=== PATIENT | female | born 1955 | race Caucasian/White ===

== ENCOUNTER → 2019-02-28 19:46 | Outpatient (CLI) | payer MEDICARE ==
[~2019-02-28 19:46] MED LIST: ASPIRIN EC81 M1 PO; BUSPAR 15 MG TA15 MG PO; CELEBREX200 MG PO; COREG 3.1253.125 MG PO; DIOVAN80 MG PO; GLUCOPHAGE500 MG PO; PROZAC40 MG PO; REGLAN10 MG
[2019-03-28 00:08] VITALS: BMI 41.6
== END | disposition home or self-care (01) ==
LOC: D.LABREF 19:46
PROVIDERS: ATTEND Orthopaedic Surgery
DX: M17.12 Unilateral primary osteoarthritis, left knee (principal)

== ENCOUNTER 2019-03-01 16:17 | Inpatient (IN) | payer MEDICARE, OTHER ==
[~2019-03-01] VITALS: Ht 154.9 cm; Wt 100.0 kg
[2019-03-14] MEDS ORDERED: GLUCOPHAGE500 MG PO (13:38)
[2019-03-14] MEDS ORDERED: PROZAC40 MG PO (13:38)
[2019-03-14] MEDS ORDERED: CELEBREX200 MG PO (13:38)
[2019-03-14] MEDS ORDERED: DIOVAN80 MG PO (13:39)
[2019-03-14] MEDS ORDERED: ASPIRIN EC81 M1 PO (13:39)
[2019-03-14] MEDS ORDERED: COREG 3.1253.125 MG PO (13:39)
[2019-03-14] MEDS ORDERED: BUSPAR 15 MG TA15 MG PO (13:40)
[2019-03-22] MEDS ORDERED: REGLAN10 MG (11:01)
[2019-03-22 11:46] LABS: BASOPHILS 0.3 % (0-2); EOSINOPHILS 2.6 % (0-7); HEMATOCRIT 44.2 % (36.0-48.0); HEMOGLOBIN 14.3 g/dL (12-16); IMMATURE GRANULOCYTES 0.3 % (0-5); LYMPHOCYTES 21.5 % (15-50); MCH 29.2 pg (26.0-34.0); MCHC 32.4 g/dL (31.0-37.0); MCV 90.4 fL (80.0-100.0); MEAN PLATELET VOLUME 9.2 fL (7.4-10.4); MONOCYTES 7.9 % (2-11); NEUTROPHILS 67.4 % (40-80); PLATELET COUNT 276 10x3/uL (130-400); RBC 4.89 10x6/uL (4.00-5.40); RDW 14.4 % (11.5-14.5); WBC 11.8 10x3/uL (4.8-10.8)
[2019-03-22 11:47] LABS: APTT 24.9 SECONDS (22.8-39.4); INR 1.03 (0.85-1.17)
[2019-03-22 11:53] LABS: CALCIUM 9.6 mg/dL (8.5-10.1); CARBON DIOXIDE 28.4 mmol/L (21.0-32.0); CREATININE - SERUM 0.9 mg/dL (0.6-1.3); POTASSIUM - SERUM 3.4 mmol/L (3.5-5.1)
[2019-03-22 12:14] LABS: APPEARANCE CLEAR (CLEAR); BILIRUBIN NEGATIVE (NEGATIVE); COLOR YELLOW (YELLOW); GLUCOSE NEGATIVE (NEGATIVE); KETONE NEGATIVE (NEGATIVE); NITRITE NEGATIVE (NEGATIVE); PROTEIN NEGATIVE (NEGATIVE); SPECIFIC GRAVITY 1.025 (1.005-1.020); UROBILINOGEN NORMAL (NORMAL)
[2019-03-27 09:36] VITALS: BP 136/92; BMI 41.6
--- NOTE | 2019-03-27 10:55 | NUR ---
DR. TIDWELL NOTIFIED AND REVIEWED PT'S BEHAVIOR AND ASSESSMENT RESULTS. PT IS A LOW RISK PER DR. TIDWELL. DR. TIDWELL STATED TO GIVE RESOURCES TO PT AT TIME OF DISCHARGE. NO FURTHER ORDERS AT THIS TIME. RESOURCES REVIEWED WITH PT AND SHE VERBALIZED UNDERSTANDING.
--- NOTE | 2019-03-27 19:21 | NUR ---
PLASMA BLADE SET TO 6/8 BOVIE PAD RIGHT THIGH [id number] EXP 11/09/20 PREPPED LEFT LEG FROM TOURNIQUET TO TOES CIRCUMFERENTIALLY WITH ALCOHOL/HIBICLENS. DRIED WITH TOWEL AND PREPPED WITH CHLORAPREP. TRAFFIC MONITORED IN AND OUT OF ROOM AND KEPT TO A MINIMUM LAMINAR FLOW NOT IN USE
--- NOTE | 2019-03-27 20:25 | NUR ---
REC'D FROM PACU PER BED TO ROOM 2213 A 64 Y/O W/FE PER SERVICES DR. GAMBINO POST OP LEFT TOTAL KNEE WITH SOUTH REMOVAL. FRANCESCA WRAP DRESSING C/D/I. IV RT ARM OF 1/2NS AT 75CC'S/HR. INFUSING. DAUGHTER AT BEDSIDE.
--- NOTE | 2019-03-27 22:00 | NUR ---
PLACED ON BEDPAN VOIDS.
[2019-03-28] VITALS: BP 118/70
[2019-03-28 00:08] VITALS: BP 112/69; Ht 154.9 cm; Wt 100.0 kg
--- NOTE | 2019-03-28 02:00 | NUR ---
VOIDS ON BEDPAN
[2019-03-28 04:36] LABS: HEMATOCRIT 35.9 % (36.0-48.0); HEMOGLOBIN 11.1 g/dL (12-16); MCHC 30.9 g/dL (31.0-37.0); MCV 90.7 fL (80.0-100.0); MEAN PLATELET VOLUME 9.3 fL (7.4-10.4); RBC 3.96 10x6/uL (4.00-5.40); RDW 14.5 % (11.5-14.5); WBC 13.9 10x3/uL (4.8-10.8)
--- NOTE | 2019-03-28 06:00 | NUR ---
PLACED IN CPM MACHINE.
[2019-03-28 09:16] VITALS: BP 112/57
[2019-03-28 12:50] VITALS: BP 110/52
--- NOTE | 2019-03-28 13:24 | NUR ---
RESTING IN BED. DENIES NEEDS. WILL CONTINUE TO MONITOR.
--- NOTE | 2019-03-28 15:30 | MORECARE ---
CASE MANAGEMENT DISCHARGE SUMMARY PATIENT: EBEN RIZVI UNIT: [id number] ADM DATE: 03/27/19 AGE: 64 : 53 SEX: F ROOM/BED: D.2213 AUTHOR: GRIFFIN ANDRADE PHYSICIAN: REFERRING PHYSICIAN: JHONNY GAMBINO MD DATE OF SERVICE: 03/28/19 Discharge Plan Patient Name: EBEN RIZVI [facility] [facility] 1955 Planned Disposition: Home or Self Care Anticipated Discharge Date: Discharge Date: Expected LOS: Initial Reviewer: [email or web address] Initial Review Date: 03/27/2019 Generated: 03/28/19 4:30 pm DCPIA - Discharge Planning Initial Assessment Updated by [id number]: Gabbie Snyder on 03/28/19 3:30 pm * Is the patient Alert and Oriented? Yes * How many steps to enter\exit or inside your home? * PCP ANGELICA * Pharmacy [facility] * Preadmission Environment Home with Family * ADLs Independent * Equipment Cane * Other Equipment WILL DELIVER WALKER BSC CPM * List name and contact numbers for known caregivers / representatives who currently or will assist patient after discharge: ARGENTINA THAYER (DAUGHTER) [phone] * Verbal permission to speak to the caregivers and representatives has been obtained from the patient. N/A * Community resources currently utilized None * Additional services required to return to the preadmission environment? Yes * Can the patient safely return to the preadmission environment? Yes * Has this patient been hospitalized within the prior 30 days at any hospital? No Patient Name: EBEN RIZVI Page [id number] at 1530 All edits/amendments must be made on the electronic document DICTATION DATE: 03/28/19 153 SYSTEMS INTEGRATION ADVISOR: NATE 03/28/19 153 RPT#: [id number] DC DATE: STATUS: ADM IN [facility] [address] [place] [address] END OF REPORT
--- NOTE | 2019-03-28 15:54 | MORECARE ---
CASE MANAGEMENT DISCHARGE SUMMARY PATIENT: EBEN RIZVI UNIT: [id number] ADM DATE: 03/27/19 AGE: 64 : 53 SEX: F ROOM/BED: D.2213 AUTHOR: GRIFFIN ANDRADE PHYSICIAN: REFERRING PHYSICIAN: JHONNY GAMBINO MD DATE OF SERVICE: 03/28/19 Discharge Plan Patient Name: EBEN RIZVI [facility] [facility] 1955 Planned Disposition: Home or Self Care Anticipated Discharge Date: Discharge Date: Expected LOS: Initial Reviewer: [email or web address] Initial Review Date: 03/27/2019 Generated: 03/28/19 4:53 pm DCPIA - Discharge Planning Initial Assessment Updated by [id number]: Gabbie Snyder on 03/28/19 3:51 pm * Is the patient Alert and Oriented? Yes * How many steps to enter\exit or inside your home? * PCP ANGELICA * Pharmacy [facility] * Preadmission Environment Home with Family * ADLs Independent * Equipment Cane * Other Equipment WILL DELIVER WALKER BSC CPM * List name and contact numbers for known caregivers / representatives who currently or will assist patient after discharge: ARGENTINA THAYER (DAUGHTER) [phone] * Verbal permission to speak to the caregivers and representatives has been obtained from the patient. N/A * Community resources currently utilized None * Additional services required to return to the preadmission environment? Yes * Can the patient safely return to the preadmission environment? Yes * Has this patient been hospitalized within the prior 30 days at any hospital? No Last DP export: 03/28/19 2:30 Patient Name: EBEN RIZVI Page [id number] at 1554 All edits/amendments must be made on the electronic document DICTATION DATE: 03/28/191552 HOSPICE BEREAVEMENT COORDINATOR: NATE 03/28/191552 RPT#: [id number] DC DATE: STATUS: ADM IN [facility] [address] [place] [address] END OF REPORT
[2019-03-28 17:11] VITALS: BP 104/56
--- NOTE | 2019-03-28 17:46 | NUR ---
BP 118/60 PRIOR TO PRN PAIN MEDICATION.
--- NOTE | 2019-03-28 18:33 | NUR ---
RESTING IN BED. DENIES NEEDS. IV TO RIGHT AC PATENT WITHOUT REDNESS. BED LOW. FALL PRECAUTIONS IN PLACE. CALL NERI AND PERSONAL ITEM SIN REACH.
--- NOTE | 2019-03-28 18:38 | NUR ---
CPM PLACED ON PATIENT.
[2019-03-28 20:00] VITALS: BP 119/55
--- NOTE | 2019-03-28 20:00 | NUR ---
RESTING IN BED ASSESSMENT PER FLOWSHEET. FRANCESCA WRAP DRESSING TO LEFT LEG C/D/I LEG IN CPM MACHINE. SALINE IV TO RT ARM SITE CLEAR.
--- NOTE | 2019-03-28 22:24 | NUR ---
C/O PAIN IN LEFT LEG AND THIGH AREA. PERCOCET 10MG TAB ONE PO GIVEN FOR PAIN CONTROL.RATES PAIN LEVEL #8-9. LEG OUT OF CPM.
--- NOTE | 2019-03-28 23:35 | NUR ---
PATIENT IN TEARS STATING THE PAIN IS NOW AT #10 UNRELIEVED WITH PERCOCET. PPP+ TO BOTH LEGS. LOOSENED FRANCESCA WRAP. TORADOL 30MG IVP GIVEN FOR PAIN CONTROL.
[2019-03-29] VITALS: BP 116/56
--- NOTE | 2019-03-29 | NUR ---
PAIN IS STARTING TO EASE UP SOME REPOSTIONED IN BED ICE BAG APPLIED TO LEFT KNEE.
--- NOTE | 2019-03-29 02:19 | NUR ---
C/O PAIN IN INCISIONAL AREA. RATES PAIN LEVEL #6 PERCOCET TAB ONE GIVEN PO FOR PAIN CONTROL.
--- NOTE | 2019-03-29 03:53 | NUR ---
RESTING QUIETLY AT THIS TIME.
[2019-03-29 04:00] VITALS: BP 110/66
[2019-03-29 05:09] LABS: HEMATOCRIT 30.3 % (36.0-48.0); HEMOGLOBIN 9.3 g/dL (12-16); MCH 28.4 pg (26.0-34.0); MCHC 30.7 g/dL (31.0-37.0); MCV 92.4 fL (80.0-100.0); MEAN PLATELET VOLUME 9.6 fL (7.4-10.4); RBC 3.28 10x6/uL (4.00-5.40); RDW 14.9 % (11.5-14.5)
[2019-03-29 05:11] LABS: WBC 8.7 10x3/uL (4.8-10.8)
--- NOTE | 2019-03-29 06:14 | NUR ---
RESTING QUIETLY LEFT LEG IN CPM MACHINE.
--- NOTE | 2019-03-29 07:32 | NUR ---
PT RESTING IN BED. NO SIGNS OF DISTRESS. IV TO RIGHT FORARM PATENT NO REDNESS OR TENDERNESS. HAS INCISION TO LEFT KNEE. DRESSING CLEAN DRY AND INTACT. ALL FALL PRECAUTIONS IN PLACE. DENIES ANY FURTHER NEED AT THIS TIME. CALL LIGHT IN REACH. BED LOW POSITION. NO FAMILY AT BEDSIDE AT THIS TIME.
[2019-03-29 09:22] VITALS: BP 122/63
--- NOTE | 2019-03-29 12:05 | MORECARE ---
CASE MANAGEMENT DISCHARGE SUMMARY PATIENT: EBEN RIZVI UNIT: [id number] ADM DATE: 03/27/19 AGE: 64 : 53 SEX: F ROOM/BED: D.2213 AUTHOR: GRIFFIN ANDRADE PHYSICIAN: REFERRING PHYSICIAN: JHONNY GAMBINO MD DATE OF SERVICE: 03/29/19 Discharge Plan Patient Name: EBEN RIZVI Facility: [facility]:[place] : 1955 Planned Disposition: Home or Self Care Anticipated Discharge Date: Discharge Date: Expected LOS: Initial Reviewer: [email or web address] Initial Review Date: 03/27/2019 Generated: 03/29/19 1:04 pm Comments DCP- Discharge Planning Updated by [email or web address]: Gabbie Snyder on 03/29/19 10:[address] OP PT APPOINTMENT MADE FOR Apr @ 1:30 PM, I SPOKE WITH CASSIDY DCP- Discharge Planning Updated by [id number]: Gabbie Snyder on 03/28/19 2:[address] Patient Name: EBEN RIZVI Admission Status: Urgent Accout number: [id number] Admission Date: 03-27-2019 : 1955 Admission Diagnosis: Attending: JHONNY GAMBINO Current LOS: 1 Anticipated DC Date: Planned Disposition: Home or Self Care Primary Insurance: MEDICARE A & B Discharge Planning Comments: CM met with patient to complete initial dc planning assessment. CM educated patient on the CM role and verbal consent given by patient to complete assessment. Patient lives with his son and his where she was independent at home. At discharge patient plans to go home with her cousin and stay there why she heals. She stated that her son has many dogs and they like to jump. She feels this is a safe discharge. CM discussed availability of home health, rehab services, and medical equipment. She would like to do her OP PT at [facility]. I called and left a message for Cassidy to set up an appointment. Her DME has been delivered to her home. (CPM, walker, and BSC) Patient denied known discharge needs at this time. CM will continue to follow and will assist as needed with dc plans/needs. Pellet Mill Operator: Gabbie Snyder DCPIA - Discharge Planning Initial Assessment Updated by [email or web address]: Gabbie Snyder on 03/28/19 3:51 pm * Is the patient Alert and Oriented? Yes * How many steps to enter\exit or inside your home? * PCP ANGELICA * Pharmacy [facility] [address] * Preadmission Environment Home with Family * ADLs Independent * Equipment Cane * Other Equipment WILL DELIVER WALKER BSC CPM * List name and contact numbers for known caregivers / representatives who currently or will assist patient after discharge: ARGENTINA THAYER (DAUGHTER) [phone] * Verbal permission to speak to the caregivers and representatives has been obtained from the patient. N/A * Community resources currently utilized None * Additional services required to return to the preadmission environment? Yes * Can the patient safely return to the preadmission environment? Yes * Has this patient been hospitalized within the prior 30 days at any hospital? No Last DP export: 03/28/19 2:54 Patient Name: EBEN RIZVI Page [id number] at 1205 All edits/amendments must be made on the electronic document DICTATION DATE: 03/29/19 120 INFORMATION TECHNOLOGY ARCHITECT: NATE 03/29/19 1204 RPT#: [id number] [place] DATE: STATUS: ADM IN [facility] [address] [place] [address] END OF REPORT
--- NOTE | 2019-03-29 13:10 | OP ---
PATIENT NAME: EBEN RIZVI MEDICAL RECORD: [id number] :[birth year] LOCATION:D.MS [id number] ADMISSION DATE:03/27/19 SURGEON: JHONNY GAMBINO MD DATE OF OPERATION: 03/27/2019 PREOPERATIVE DIAGNOSES: 1. Severe degenerative arthritis, left knee. 2. Painful intramedullary tracy, left tibia. POSTOPERATIVE DIAGNOSES: 1. Severe degenerative arthritis, left knee. 2. Painful intramedullary tracy, left tibia. PROCEDURE: 1. Left total knee arthroplasty. 2. Removal of tibial hardware - intramedullary tracy, left tibia. SURGEON: Jhonny Gambino MD PHYSICIAN ASSISTANT PRIMARY CARE: Brice Bravo APN INTRAOPERATIVE COMPLICATIONS: Essentially none; however, the tibial nail that has been in for almost 17 years, was very difficult to get out, but it was done, eventually and the patient had severe osteoarthritis of the knee consistent with preoperative radiographs. Removal of the hardware was done under fluoroscopic guidance. Final radiographs after the nail was removed were taken and sent to the radiologist for review. IMPLANTS USED: Ray triathlon total knee arthroplasty size 3 distal femur, size 3 tibial baseplate, size 9 tibial bearing insert with a size 27 patella. OPERATIVE SUMMARY IN DETAIL: After obtaining the appropriate preoperative orthopedic surgery consent as well as anesthetic consultation, evaluation, and clearance, the patient was brought to the operating room and placed on the operating room table in supine position. After adequate general laryngeal mask airway was administered, tourniquet was placed on the proximal aspect of the left lower extremity. Left lower extremity was then prepped and draped in routine sterile fashion. Leg was elevated, exsanguinated, and tourniquet was inflated to 350 mmHg. Under fluoroscopic guidance, distal interlocking screws were removed likewise the proximal and locking screws removed. Incision was made, cut down to the insertion site of the nail. Awl was utilized to remove all bone and about the proximal aspect of the nail. Multiple attempts using universal extracted were unsuccessful. However, the actual insertion device was then engaged in the proximal aspect of the tibial nail, and after some degree of trepidation, the nail was removed in its entirety. At this point, the incision was elongated straight across the top of the nail for an anterior approach. In keeping with total knee arthroplasty, paramedian arthrotomy was performed. Patella was everted and distal femur was exposed. Soft tissue excision was followed by intramedullary guidewire and intramedullary guided distal femoral cut likewise the proximal tibia was also used for intramedullary guidance after making a hole for the intramedullary guide tracy. After completing the cut of the proximal tibia, appropriate measurements were made followed by chamfer cuts on the distal femur. Appropriate trials corresponding to those above were put into place. Knee was taken through range of motion and found to be stable in all planes. Final distal femoral preparations and proximal tibial preparations were OPERATIVE REPORT [id number] EBEN RIZVI then followed by excision of the arthritic patellar surface. This was then prepared for final patellar resurfacing. Pulsatile irrigation was then followed by drying the bone ends and cementing all components in place. After the cement, excess cement was removed. Cement was allowed to harden knee was taken through a range of motion and found to be stable in all planes. At this point, a gram of vancomycin and a gram and tobramycin were placed directly into the knee. The paramedian arthrotomy was closed with #5 Ethibond followed by #1 Vicryl, 2-0 Vicryl, and skin yessenia done by Brice Bravo. Sterile dressings were applied. The patient was awakened and taken to the recovery room in stable condition. All final needle and sponge counts were correct. TRANSINT:[id number] Voice Confirmation ID: [id number] DOCUMENT ID: [id number] MAKI CARREON, JHONNY BLUM at 1310 CC: [id number] DICTATION DATE: 03/28/19 1308 IRON MELTER: 03/28/[address] [facility] [place] [id number] [place] [address]
[2019-03-29 13:13] VITALS: BP 142/66
[2019-03-29 16:45] VITALS: BP 119/60
--- NOTE | 2019-03-29 16:57 | MORECARE ---
CASE MANAGEMENT DISCHARGE SUMMARY PATIENT: EBEN RIZVI UNIT: [id number] ADM DATE: 03/27/19 AGE: 64 : 53 SEX: F ROOM/BED: D.2213 AUTHOR: GRIFFIN ANDRADE PHYSICIAN: REFERRING PHYSICIAN: JHONNY GAMBINO MD DATE OF SERVICE: 03/29/19 Discharge Plan Patient Name: EBEN RIZVI Facility: [facility]:[place] : 1955 Planned Disposition: Home or Self Care Anticipated Discharge Date: Discharge Date: Expected LOS: Initial Reviewer: [email or web address] Initial Review Date: 03/27/2019 Generated: 03/29/19 5:57 pm Comments DCP- Discharge Planning Updated by [id number]: Gabbie Snyder on 03/29/19 3:[address] IMM SERVED AND EXPLAINED, COPY PLACED IN CHART DCP- Discharge Planning Updated by [id number]: Gabbie Snyder on 03/29/19 3:[address] OP PT APPOINTMENT MADE FOR Apr @ 1:30 PM, I SPOKE WITH CASSIDY DCP- Discharge Planning Updated by [id number]: Gabbie Snyder on 03/28/19 2:[address] Patient Name: EBEN RIZVI Admission Status: Urgent Accout number: [id number] Admission Date: 03-27-2019 : 1955 Admission Diagnosis: Attending: JHONNY GAMBINO Current LOS: 1 Anticipated DC Date: Planned Disposition: Home or Self Care Primary Insurance: MEDICARE A & B Discharge Planning Comments: CM met with patient to complete initial dc planning assessment. CM educated patient on the CM role and verbal consent given by patient to complete assessment. Patient lives with his son and his where she was independent at home. At discharge patient plans to go home with her cousin and stay there why she heals. She stated that her son has many dogs and they like to jump. She feels this is a safe discharge. CM discussed availability of home health, rehab services, and medical equipment. She would like to do her OP PT at [facility]. I called and left a message for Cassidy to set up an appointment. Her DME has been delivered to her home. (CPM, walker, and BSC) Patient denied known discharge needs at this time. CM will continue to follow and will assist as needed with dc plans/needs. Physical Sciences Professor: Gabbie Snyder DCPIA - Discharge Planning Initial Assessment Updated by [email or web address]: Gabbie Snyder on 03/28/19 3:51 pm * Is the patient Alert and Oriented? Yes * How many steps to enter\exit or inside your home? * PCP ANGELICA * Pharmacy [facility] [address] * Preadmission Environment Home with Family * ADLs Independent * Equipment Cane * Other Equipment WILL DELIVER WALKER BSC CPM * List name and contact numbers for known caregivers / representatives who currently or will assist patient after discharge: ARGENTINA THAYER (DAUGHTER) [phone] * Verbal permission to speak to the caregivers and representatives has been obtained from the patient. N/A * Community resources currently utilized None * Additional services required to return to the preadmission environment? Yes * Can the patient safely return to the preadmission environment? Yes * Has this patient been hospitalized within the prior 30 days at any hospital? No Coverage Notice Reviewer: [id number] - Gabbie Snyder Notice Issued Date-Time: 03/29/2019 16:45 Notice Type: IM Discharge Notice Notice Delivered To: Patient Relationship to Patient: Sustainability Manager Name: Delivery Method: HAND - Hand Delivered Swati Days: Prior Verbal Notification: Recipient Understood Notice: Yes Recipient Signature: Yes Med Rec Note Co-signed by Attending: Coverage Notice Comment: Last DP export: 03/29/19 11:05 Patient Name: EBEN RIZVI Page [id number] at 1657 All edits/amendments must be made on the electronic document DICTATION DATE: 03/29/191656 BULB SORTER: NATE 03/29/191656 RPT#: [id number] DC DATE: STATUS: ADM IN [facility] [address] [place] [address] END OF REPORT
--- NOTE | 2019-03-29 19:41 | NUR ---
I have reviewed this patient and I concur with the Shift Assessment completed by the Licensed Practical Nurse today this shift.
[2019-03-29 19:46] VITALS: BP 120/69
--- NOTE | 2019-03-29 19:50 | NUR ---
LYING IN BED. CPM ON LLE. FRANCESCA WRAP NOTED TO LLE. RATES PAIN IN LLE 8. MEDICATED WITH TORADOL ORDERED. ALERT AND ORIENTED X4. RESP EVEN AND NONLABORED. SALINE LOCK NOTED TO RT FOREARM. SR ELEVATED X2. CL IN REACH.
--- NOTE | 2019-03-29 21:20 | NUR ---
TAKEN OFF CPM AT THIS TIME. CL IN REACH.
[2019-03-30] VITALS: BP 137/65
--- NOTE | 2019-03-30 00:10 | NUR ---
MEDICATED WITH MYLANTA FOR C/O GAS AND EPIGASTRIC BURNING. CL IN REACH.
--- NOTE | 2019-03-30 00:45 | NUR ---
MEDICATED WITH PERCOCET ORDERED FOR C/O KNEE PAIN. CL IN REACH.
[2019-03-30 04:00] VITALS: BP 135/68
--- NOTE | 2019-03-30 06:15 | NUR ---
PT HAVING PANIC ATTACK. REQUESTS STAFF TAKE HER OFF CPM DESPITE ONLY BEING ON IT FOR 15 MIN. CPM REMOVED. C/O PAIN IN LT KNEE. MEDICATED WITH PERCOCET. C/O NAUSEA. MEDICATED WITH ZOFRAN PO.
--- NOTE | 2019-03-30 06:32 | NUR ---
MEDICATED WITH MYLANTA FOR C/O BURPING AND GAS.
[2019-03-30 08:42] VITALS: BP 107/52
[2019-03-30 12:29] VITALS: BP 118/73
[2019-03-30 17:35] VITALS: BP 116/74
--- NOTE | 2019-03-30 17:36 | NUR ---
PT IS SLEEPING ON RIGHT SIDE. SHE IS WITHOUT DISTRESS.
[2019-03-30 20:29] VITALS: BP 176/84
--- NOTE | 2019-03-30 21:00 | NUR ---
A/O WITH NO SIGNS OF ACUTE DISTRESS. IV TO THE RT FORARM WITH NO REDNESS OR SWELLING NOTED. DRESSING INTACT TO THE LT LEG, PULSE PALP. DENIES NO FURTHER NEEDS AT THIS TIME. CONTINUE WITH PLAN OF CARE.
[2019-03-31 01:22] VITALS: BP 133/56
[2019-03-31 06:20] VITALS: BP 148/80
--- NOTE | 2019-03-31 07:40 | NUR ---
PATIENT IN BED WITH IV INTACT. NO COMPLAINTS. TOOK CPM OFF BECAUSE PATIENT STATED IS HURTING TO MUCH. DRESSING TO KNEE CDI. CALL LIGHT WITHIN REACH.
[2019-03-31 09:01] VITALS: BP 139/64
--- NOTE | 2019-03-31 11:45 | NUR ---
PATIENT SITTING UP IN CHAIR AT THIS TIME WITH NO COMPLAINTS OR PROBLEMS. CALL LIGHT WITHIN REACH.
--- NOTE | 2019-03-31 12:06 | MORECARE ---
CASE MANAGEMENT DISCHARGE SUMMARY PATIENT: EBEN RIZVI UNIT: [id number] ADM DATE: 03/27/19 AGE: 64 : 51 SEX: F ROOM/BED: D.2213 AUTHOR: LUPE,DOC PHYSICIAN: REFERRING PHYSICIAN: JHONNY GAMBINO MD DATE OF SERVICE: 03/31/19 Discharge Plan Patient Name: EBEN RIZVI Facility: [facility]:[place] : 1955 Planned Disposition: Home or Self Care Anticipated Discharge Date: Discharge Date: Expected LOS: Initial Reviewer: [email or web address] Initial Review Date: 03/27/2019 Generated: 03/31/19 1:06 pm Comments DCP- Discharge Planning Updated by [id number]: Gabbie Snyder on 03/31/19 11:[address] PATIENT DISCHARGING HOME TODAY, DENIES ANY OTHER NEEDS DCP- Discharge Planning Updated by [email or web address]: Gabbie Snyder on 03/29/19 3:[address] IMM SERVED AND EXPLAINED, COPY PLACED IN CHART DCP- Discharge Planning Updated by [email or web address]: Gabbie Snyder on 03/29/19 3:[address] OP PT APPOINTMENT MADE FOR Apr @ 1:30 PM, I SPOKE WITH CASSIDY DCP- Discharge Planning Updated by [email or web address]: Gabbie Snyder on 03/28/19 2:[address] Patient Name: EBEN RIZVI Admission Status: Urgent Accout number: [id number] Admission Date: 03-27-2019 : 1955 Admission Diagnosis: Attending: JHONNY GAMBINO Current LOS: 1 Anticipated DC Date: Planned Disposition: Home or Self Care Primary Insurance: MEDICARE A & B Discharge Planning Comments: CM met with patient to complete initial dc planning assessment. CM educated patient on the CM role and verbal consent given by patient to complete assessment. Patient lives with his son and his where she was independent at home. At discharge patient plans to go home with her cousin and stay there why she heals. She stated that her son has many dogs and they like to jump. She feels this is a safe discharge. CM discussed availability of home health, rehab services, and medical equipment. She would like to do her OP PT at [facility]. I called and left a message for Cassidy to set up an appointment. Her DME has been delivered to her home. (CPM, walker, and BSC) Patient denied known discharge needs at this time. CM will continue to follow and will assist as needed with dc plans/needs. E Merchant: Gabbie Snyder DCPIA - Discharge Planning Initial Assessment Updated by [email or web address]: Gabbie Snyder on 03/28/19 3:51 pm * Is the patient Alert and Oriented? Yes * How many steps to enter\exit or inside your home? * PCP ANGELICA * Pharmacy [facility] [address] * Preadmission Environment Home with Family * ADLs Independent * Equipment Cane * Other Equipment WILL DELIVER WALKER BSC CPM * List name and contact numbers for known caregivers / representatives who currently or will assist patient after discharge: ARGENTINA THAYER (DAUGHTER) [phone] * Verbal permission to speak to the caregivers and representatives has been obtained from the patient. N/A * Community resources currently utilized None * Additional services required to return to the preadmission environment? Yes * Can the patient safely return to the preadmission environment? Yes * Has this patient been hospitalized within the prior 30 days at any hospital? No Coverage Notice Reviewer: [id number] - Gabbie Snyder Notice Issued Date-Time: 03/29/2019 16:45 Notice Type: IM Discharge Notice Notice Delivered To: Patient Relationship to Patient: Cook Box Filler Name: Delivery Method: HAND - Hand Delivered Swati Days: Prior Verbal Notification: Recipient Understood Notice: Yes Recipient Signature: Yes Med Rec Note Co-signed by Attending: Coverage Notice Comment: Last DP export: 03/29/19 3:57 Patient Name: EBEN RIZVI Page [id number] at 1206 All edits/amendments must be made on the electronic document DICTATION DATE: 03/31/191205 LIME VAT TENDER: NATE 03/31/19 1206 RPT#: [id number] DC DATE: STATUS: ADM IN [facility] [address] [place] [address] END OF REPORT
--- NOTE | 2019-03-31 17:33 | NUR ---
PATIENT IV REMOVED WITH CATH TIP INTACT. DRESSING TO LEFT LOWER EXT. CHANGED AT THIS TIME. INCISION CLEAN AND DRY. PATIENT TOLERATED WITH SMALL AMOUNT OF PAIN. AWAITING TRANSPORTATION FOR DC. CALL LIGHT WITHIN REACH.
--- NOTE | 2019-03-31 18:10 | NUR ---
PATIENT ESCORTED OUT OF HOSPITAL VIA WC WITH PERSONAL BELONGINGS BY SCALE AGENT TO PRIVATE VEHICLE AT THIS TIME.
--- NOTE | 2019-04-01 15:54 | MORECARE ---
CASE MANAGEMENT DISCHARGE SUMMARY PATIENT: EBEN RIZVI UNIT: [id number] ADM DATE: 03/27/19 AGE: 64 : 51 SEX: F ROOM/BED: D.2213 AUTHOR: LUPEDOC PHYSICIAN: REFERRING PHYSICIAN: JHONNY GAMBINO MD DATE OF SERVICE: 04/01/19 Discharge Plan Patient Name: EBEN RIZVI Facility: [facility]:[place] : 1955 Planned Disposition: Home or Self Care Anticipated Discharge Date: 03/31/19 Discharge Date: 03/31/2019 Expected LOS: 4 Initial Reviewer: [email or web address] Initial Review Date: 03/27/2019 Generated: 04/01/19 4:54 pm Comments DCP- Discharge Planning Updated by [email or web address]: Gabbie Snyder on 03/31/19 11:[address] PATIENT DISCHARGING HOME TODAY, DENIES ANY OTHER NEEDS DCP- Discharge Planning Updated by [email or web address]: Gabbie Snyder on 03/29/19 3:[address] IMM SERVED AND EXPLAINED, COPY PLACED IN CHART DCP- Discharge Planning Updated by [email or web address]: Gabbie Snyder on 03/29/19 3:[address] OP PT APPOINTMENT MADE FOR Apr @ 1:30 PM, I SPOKE WITH CASSIDY DCP- Discharge Planning Updated by [email or web address]: Gabbie Snyder on 03/28/19 2:[address] Patient Name: EBEN RIZVI Admission Status: Urgent Accout number: [id number] Admission Date: 03-27-2019 : 1955 Admission Diagnosis: Attending: JHONNY GAMBINO Current LOS: 1 Anticipated DC Date: Planned Disposition: Home or Self Care Primary Insurance: MEDICARE A & B Discharge Planning Comments: CM met with patient to complete initial dc planning assessment. CM educated patient on the CM role and verbal consent given by patient to complete assessment. Patient lives with his son and his where she was independent at home. At discharge patient plans to go home with her cousin and stay there why she heals. She stated that her son has many dogs and they like to jump. She feels this is a safe discharge. CM discussed availability of home health, rehab services, and medical equipment. She would like to do her OP PT at [facility]. I called and left a message for Cassidy to set up an appointment. Her DME has been delivered to her home. (CPM, walker, and BSC) Patient denied known discharge needs at this time. CM will continue to follow and will assist as needed with dc plans/needs. Relay Repairer: Gabbie Snyder DCPIA - Discharge Planning Initial Assessment Updated by [id number]: Gabbie Snyder on 03/28/19 3:51 pm * Is the patient Alert and Oriented? Yes * How many steps to enter\exit or inside your home? * PCP ANGELICA * Pharmacy [facility] [address] * Preadmission Environment Home with Family * ADLs Independent * Equipment Cane * Other Equipment WILL DELIVER WALKER BSC CPM * List name and contact numbers for known caregivers / representatives who currently or will assist patient after discharge: ARGENTINA THAYER (DAUGHTER) [phone] * Verbal permission to speak to the caregivers and representatives has been obtained from the patient. N/A * Community resources currently utilized None * Additional services required to return to the preadmission environment? Yes * Can the patient safely return to the preadmission environment? Yes * Has this patient been hospitalized within the prior 30 days at any hospital? No Coverage Notice Reviewer: [id number] - Gabbie Snyder Notice Issued Date-Time: 03/29/2019 16:45 Notice Type: IM Discharge Notice Notice Delivered To: Patient Relationship to Patient: Primary Care Nurse Name: Delivery Method: HAND - Hand Delivered Swati Days: Prior Verbal Notification: Recipient Understood Notice: Yes Recipient Signature: Yes Med Rec Note Co-signed by Attending: Coverage Notice Comment: Last DP export: 03/31/19 11:06 Patient Name: EBEN RIZVI Page [id number] at 1554 All edits/amendments must be made on the electronic document DICTATION DATE: 04/01/191552 SUBSTATION WIREMAN: NATE 04/01/191552 RPT#: [id number] DC DATE:03/31/19 STATUS: DIS IN [facility] [address] [place] [address] END OF REPORT
== END 2019-03-31 18:12 | disposition home or self-care (01) | DRG 470 ==
LOC: D.SDCHOLD 03-20 07:30 → D.MS 03-27 09:00 → D.SDCHOLD 03-27 09:00 → D.MS 03-27 20:02
PROVIDERS: ADMIT Orthopaedic Surgery; ATTEND Orthopaedic Surgery
PROC: 0QP Lower Bones, Removal (ICD-10-PCS; 2019-03-27)
PROC: 0SRD0J9 Replacement of Left Knee Joint with Synthetic Substitute, Cemented, Open Approach (ICD-10-PCS; principal; 2019-03-27 11:00)
DX: M17.12 Unilateral primary osteoarthritis, left knee (principal); T84.84XA Pain due to internal orthopedic prosthetic devices, implants and grafts, initial encounter; I10 Essential (primary) hypertension; E11.9 Type 2 diabetes mellitus without complications; K21.9 Gastro-esophageal reflux disease without esophagitis

== ENCOUNTER → 2019-11-08 11:15 | Outpatient (CLI) | payer OTHER ==
[2019-03-28 00:08] VITALS: BMI 41.6
== END | disposition home or self-care (01) ==
LOC: D.NM 09-29 12:00
PROVIDERS: ATTEND Orthopaedic Surgery
DX: Z96.652 Presence of left artificial knee joint (principal)

== ENCOUNTER → 2019-11-15 16:58 | Outpatient (CLI) | payer OTHER ==
[2019-03-28 00:08] VITALS: BMI 41.6
[2019-11-15 17:47] LABS: HEMATOCRIT 46.7 % (36.0-48.0); HEMOGLOBIN 14.6 g/dL (12-16); LYMPHOCYTES 24.1 % (15-50); MCH 27.3 pg (26.0-34.0); MCHC 31.3 g/dL (31.0-37.0); MCV 87.5 fL (80.0-100.0); MEAN PLATELET VOLUME 9.1 fL (7.4-10.4); NEUTROPHILS 66.2 % (40-80); RBC 5.34 10x6/uL (4.00-5.40); WBC 11.1 10x3/uL (4.8-10.8)
[2019-11-15 17:49] LABS: PLATELET COUNT 293 10x3/uL (130-400)
[2019-11-15 17:57] LABS: ALBUMIN 3.9 g/dL (3.4-5.0); ANION GAP 9.2 mmol/L (8-16); BILIRUBIN - TOTAL 0.63 mg/dL (0.2-1.3); C-REACTIVE PROTEIN 2.2 mg/dL (0.0-0.9); CARBON DIOXIDE 28.2 mmol/L (21.0-32.0); POTASSIUM - SERUM 3.4 mmol/L (3.5-5.1); PROTEIN - SERUM 7.8 g/dL (6.4-8.2)
[2019-11-15 19:05] LABS: ERYTHROCYTE SEDIMENTATION RATE 14 mm/hr (0-30)
== END | disposition home or self-care (01) ==
LOC: D.LAB 16:58
PROVIDERS: ATTEND Orthopaedic Surgery
DX: G89.18 Other acute postprocedural pain (principal)

== ENCOUNTER → 2019-11-23 15:49 | Outpatient (CLI) | payer OTHER ==
[2019-03-28 00:08] VITALS: BMI 41.6
== END | disposition home or self-care (01) ==
LOC: D.MRI 15:49
PROVIDERS: ATTEND Orthopaedic Surgery
DX: C40.01 Malignant neoplasm of scapula and long bones of right upper limb (principal)

== ENCOUNTER → 2019-11-27 09:02 | Outpatient (CLI) | payer OTHER ==
[2019-03-28 00:08] VITALS: BMI 41.6
--- NOTE | ~2019-11-27 | HEMODYNAMI ---
PATIENT:EBEN RIZVI MEDICAL RECORD: [id number] : 51 LOCATION:[facility] ADMISSION DATE: 11/27/19 Generatedon:11/27/201911:47 Patient name: EBEN RIZVI Patient #: [id number] SSN: : 1955 Date of study: 11/27/2019 Page: Of Hemodynamic Procedure Report Patient Data Patient Demographics Procedure consent was obtained First Name: EBEN Gender: Female Last Name: DMITRI : 1955 [facility] Initial: Kin Age: 64 year(s) Patient #: [id number] Race: Unknown Additional ID: [id number] Contact details Address: [address] [place] [address] State: [place] City: [facility] Zip code: [address] Past Medical History Allergies: No known allergies Admission Admission Data Admission Date: 11/27/2019 Admission Time: 9:02 Procedure Procedure Types Cath Procedure Peripheral Cath Diagnostic Procedure Miscellaneous Aspiration/Injection (Joint) Procedure Description Procedure Date Procedure Date: 11/27/2019 Procedure Start Time: 11:32 Procedure Staff Name Function Good Dalal MD Performing Physician MARTI SOLORZANO RT Monitor Procedure Data Cath Procedure Fluoroscopy Diagnostic fluoroscopy Total fluoroscopy Time: 1.3 time: 1.3 min min Diagnostic fluoroscopy Total fluoroscopy dose: 6 dose: 6 mGy mGy Contrast Material Contrast Material Type Amount (ml) Isovue 300 10 Hemodynamics Rest Pre Cath Intra NCS Post Cath Procedure Log Time Note 10:41:19 SAFE-T PLUS MYELOGRAM TRAY opened to sterile field. 10:41:22 - 10:49:26 MARTI GILLIAM (R) sent for patient. Start room use. 10:49:28 Time tracking: Regular hours (M-F 7:00 - 5:00) 10:49:34 Patient received from Other to IR Alert and oriented. Tansferred to table in Supine position. 10:49:36 Signed procedure consent form obtained from patient. 10:52:36 Warm blankets applied, and luh hugger turned on for patient comfort. 10::36 Correct patient and procedure confirmed by team. 10:52:41 Pre-procedure instructions explained to patient. 10:53:30 Patient allergic to No known allergies 10:53:39 - 10:53:56 Left Knee was prepped with betadine and draped in sterile fashion. 10:53:57 Alarms reviewed by Arturo Gregory 10:53:58 Sharps counted by scrub and verified by RYocasta 10:53:59 - 11:27:15 Physician arrived 11:27:15 --------ALL STOP TIME OUT------ 11:27:16 Final Timeout: patient, procedure, and site verified with staff and physician. All members of the team are in agreement. 11:27:24 Left knee site verified by team. ::42 Procedure started. ::42 Full Disclosure recording started 11:32:49 Local anesthetic to Left Knee with Lidocaine 1% by Good Dalal MD.INITIAL ACCESS ONLY 11:39:59 Procedure ended.(Physican Out) 11:46:17 Fluoroscopy time 01.30 minutes. 11:46:19 Fluoroscopy dose: 6 mGy 11:46:19 Flurop Dose total: 6 11:46:24 Contrast amount:Isovue 300 10ml. 11:46:42 Post-op/insertion site Left Knee dressed using a 4 x 4 and Tegaderm. 11:47:23 Patient transfered to Other with Wheelchair. Device Usage Item Name Manufacture Quantity Catalog Hospital Part Current Minimal Lot# / Number Charge Number Stock Stock Serial# Code SAFE-T [employer] 1 [id number] PLUS MYELOGRAM TRAY Signature Audit [place] Stage Time Signature Unsigned Intra-Procedure 11/27/2019 MARTI SOLORZANO RT 11:47:35 AM (R) [facility] [address] [place] [address]
== END | disposition home or self-care (01) ==
LOC: D.SP 09:02 → D.RAD 14:00
PROVIDERS: ATTEND Orthopaedic Surgery
DX: Z96.652 Presence of left artificial knee joint (principal)

== ENCOUNTER 2019-12-28 10:17 | Day surgery (SDC) | payer OTHER ==
[~2019-12-28] VITALS: Ht 154.9 cm; Wt 94.5 kg
[2019-12-28 11:00] LABS: CALC OSMOLALITY 280 mosm/kg (275-300); CALCIUM 8.9 mg/dL (8.5-10.1); CARBON DIOXIDE 29.5 mmol/L (21.0-32.0); CHLORIDE - SERUM 104 mmol/L (98-107); CREATININE - SERUM 0.8 mg/dL (0.6-1.3); GLUCOSE 102 mg/dL (74-106); POTASSIUM - SERUM 3.9 mmol/L (3.5-5.1); SODIUM 139 mmol/L (136-145); UREA NITROGEN 20 mg/dL (7-18); eGFR NON AFRICAN AMERICAN 76 mL/min (90-120)
[2019-12-28 11:01] LABS: INR 0.96 (0.85-1.17); PROTIME 12.7 SECONDS (11.6-15.0)
[2019-12-28 11:09] LABS: BASOPHILS 0.4 % (0-2); EOSINOPHILS 5.6 % (0-7); HEMATOCRIT 41.9 % (36.0-48.0); IMMATURE GRANULOCYTES 0.3 % (0-5); MCH 27.4 pg (26.0-34.0); MCV 88.4 fL (80.0-100.0); MEAN PLATELET VOLUME 9.3 fL (7.4-10.4); NEUTROPHILS 55.7 % (40-80); PLATELET COUNT 250 10x3/uL (130-400); RBC 4.74 10x6/uL (4.00-5.40); RDW 14.4 % (11.5-14.5); WBC 7.9 10x3/uL (4.8-10.8)
[2019-12-28 11:25] VITALS: BP 118/67; Ht 154.9 cm; Wt 94.5 kg
== END 2019-12-28 16:50 | disposition home or self-care (01) ==
LOC: D.SP 10:17 → D.CT 13:00 → D.SP 13:00
PROVIDERS: General Practice; ATTEND Orthopaedic Surgery
DX: C40.01 Malignant neoplasm of scapula and long bones of right upper limb (principal); T84.84XA Pain due to internal orthopedic prosthetic devices, implants and grafts, initial encounter; Z96.652 Presence of left artificial knee joint; M75.81 Other shoulder lesions, right shoulder